=== PATIENT | female | born 1945 | race Caucasian/White ===

== ENCOUNTER 2019-11-10 07:20 | Observation (INO) | payer OTHER ==
[2019-11-06 10:45] LABS: BASOPHILS # (AUTO) 0.1 (0.0-0.1); EOSINOPHILS # (AUTO) 0.2 (0.0-0.4); EOSINOPHILS % 1.9 % (0.0-6.0); HEMATOCRIT 38.4 % (34.2-44.1); HEMOGLOBIN 12.6 g/dL (12.0-16.0); LYMPHOCYTES # (AUTO) 2.2 (1.0-3.2); LYMPHOCYTES % 26.3 % (18.0-39.1); MEAN CORPUSCULAR HEMOGLOBIN 29.7 pg (28-32); MEAN CORPUSCULAR HGB CONC 32.8 g/dL (31-35); MEAN CORPUSCULAR VOLUME 90.6 fL (81-99); MONOCYTES # (AUTO) 0.6 (0.2-0.8); MONOCYTES % 6.9 % (4.4-11.3); NEUTROPHILS # (AUTO) 5.3 (2.1-6.9); NEUTROPHILS % 63.4 % (38.7-80.0); PLATELET COUNT 203 x10e3/uL (140-360); RED BLOOD COUNT 4.24 x10e6/uL (3.6-5.1); RED CELL DISTRIBUTION WIDTH 11.9 % (11.7-14.4)
--- NOTE | 2019-11-06 11:39 | Diagnostic Imaging Report ---
Exam: PA and lateral chest radiograph Clinical history: Preoperative clearance Findings: There is no evidence of pulmonary consolidation, pleural effusion, or pneumothorax. The cardiac size is within normal limits. The descending aorta is tortuous. Levoscoliosis of the lumbar spine is noted. Impression: 1. No radiographic evidence of acute cardiorespiratory disease. Signed by: Dr. Rosendo Flores MD on 11/06/2019 11:35 AM
[~2019-11-10] VITALS: Ht 160 cm; Wt 68.5 kg
[~2019-11-10 07:20] MED LIST: ADVAIR 100-501 EACH INH; AMLODIPINE BESY10 MG PO; BENEFIBER1 EAC1 PO; BENICAR20 MG PO; BIOTIN5 MG; BISOPROLOL-HCT1 EAC1 PO; FERROUS SULFAT325 MG; LEVOTHYROXINE50 MCG PO; MIRALAX17 GM PO; NITROFURANTOIN100 MG PO; PRAVACHOL20 MG PO; PRAVASTATIN SOD10 MG PO; PROPIONATE PO; VITAMIN B12-FO1 EACH; VITAMIN C500 M4; VITAMIN D400 UNI1
[2019-11-10] MEDS ORDERED: ROPIVACAINE 246.25 MG, EPINEPHRINE HCL 1:1000 1ML 0.5 MG, CLONIDINE HCL 0.08 MG, KETORO... INJ ONE ×5 (08:00)
[2019-11-10] MEDS ORDERED: DEXAMETHASONE SOD PHOS 10 MG/1 ML VIAL ONE (08:12)
[2019-11-10] MEDS ORDERED: CELECOXIB 200 MG CAP ONE (08:12)
[2019-11-10] MEDS ORDERED: GABAPENTIN 300 MG CAP ONE (08:12)
[2019-11-10] MEDS ORDERED: CEFAZOLIN SOD 1 GM/NS 50ML 100 ML IV ONE (08:34)
[2019-11-10] MEDS ORDERED: HYDROCODONE/APAP 5MG-325MG TAB PO PRN (13:15)
[2019-11-10] MEDS ORDERED: ACETAMINOPHEN 650 MG SUPP PR PRN (13:15)
[2019-11-10] MEDS ORDERED: KETOROLAC TROMETHAMINE 30 MG/ML VIAL IV PRN (13:15)
[2019-11-10] MEDS ORDERED: ZOLPIDEM TARTRATE 5 MG TAB PO PRN (13:15)
[2019-11-10] MEDS ORDERED: DIPHENHYDRAMINE HCL INJ 50 MG/ML VIAL IV PRN (13:15)
[2019-11-10] MEDS ORDERED: HYDROCODONE/APAP 7.5MG-325MG 1 EA TAB PO PRN (13:15)
[2019-11-10] MEDS ORDERED: DOCUSATE SODIUM 100 MG CAP PO PRN (13:15)
[2019-11-10] MEDS ORDERED: ONDANSETRON HCL INJ 2MG/ML 2ML 2 MG/ML VIAL IV PRN (13:15)
[2019-11-10] MEDS ORDERED: VANCOMYCIN HCL 1,000 MG ONE (13:21)
[2019-11-10] MEDS ORDERED: SODIUM CHLORIDE 0.9% 250ML 500 ML ONE (13:21)
[2019-11-10] MEDS ORDERED: TRANEXAMIC ACID 1,000 MG/10 ML ML ONE (13:22)
[2019-11-10] MEDS ORDERED: BACITRACIN 50,000 UNIT VIAL ONE (13:22)
[2019-11-10] MEDS ORDERED: HYDROMORPHONE 1MG/1ML INJ ONE (13:23)
[2019-11-10] MEDS ORDERED: ACETAMINOPHEN 1000 MG/100 ML 100 ML IV ONE (13:36)
[2019-11-10] MEDS ORDERED: FENTANYL CITRATE/PF 100MCG/2 ML INJ ONE (13:49)
--- OUTSIDE RECORDS SUMMARY | 2019-11-10 14:18 | XMS REPORT ---
Author Author [facility] Organization [facility] Address [address] [place] [address] Phone Unavailable Care Team Providers Care Digital Media Intern Name Role Phone PATRICIA SALGADO Unavailable Payers Payer Name Policy Type Policy Number Effective Date Expiration Date S ource Problems This patient has no known problems. Allergies, Adverse Reactions, Alerts Allergy Name Allergy Type Status Severity Reaction(s) Onset Date Inacti ve Date Treating Clinician Comments Source lisinopril DA Active [place] 2018-10-22 00:00:00 [facility] morphine DA Active [place] 2018-10-22 00:00:00 [facility] lisinopril DA Active [place] 2017-06-23 00:00:00 [facility] morphine DA Active [place] 2016-07-23 00:00:00 [facility] Medications This patient has no known medications. Procedures This patient has no known procedures. Results Test Description Test Time Test Comments Results Result Comments Source CHEST 2 VIEWS 2019-11-06 11:32:00 [facility] [address] [place], [place] [address] Patient Name: JOB LLANOS MR #: [id number] : 1945 Age/Sex: 73/F Req #: [id number] Adm Physician: Ordered by: PATRICIA SALGADO MD Report #: [id number] Location: OR Room/Bed: Procedure: [id number] DX/CHEST 2 VIEWS Exam Date: 11/06/19 Exam Time: 1115 REPORT STATUS: Signed Exam: PA and lateral chest radiograph Clinical history: Preoperative clearance Findings: There is no evidence of pulmonary consolidation, pleural effusion, or pneumothorax. The cardiac size is within normal limits. The descending aorta is tortuous. Levoscoliosis of the lumbar spine is noted. Impression: 1. No radiographic evidence of acute cardiorespiratory disease. Signed by: Dr. Rosendo Flores MD on 11/06/2019 11:35 AM Dictated By: LUCY FLORES MD [id number] Transcribed By: MACIEJ on 11/06/19 1135 COPY TO: PATRICIA SALGADO MD
[2019-11-10 14:49] VITALS: BP 171/93
[2019-11-10 14:59] VITALS: BP 171/93
--- NOTE | 2019-11-10 15:02 | NUR ---
patient received from pacu via stretcher. see admit assess. vitals stable with no distress. no c/o pain.
[2019-11-10] MEDS ORDERED: SODIUM CHLORIDE 0.9% 1000ML 1,000 ML IV SCH (15:15)
--- NOTE | 2019-11-10 15:23 | Diagnostic Imaging Report ---
X-ray right knee portable AP and crosstable lateral History: Postoperative Findings: See impression Impression: Status post right total knee arthroplasty with orthopedic hardware in position and alignment with postoperative changes of soft tissue swelling, soft tissue air and surgical akbar. Signed by: Tye De Leon MD on 11/10/2019 3:20 PM
--- NOTE | 2019-11-10 15:30 | Operative Report ---
DATE OF PROCEDURE: 11/10/2019 SURGEON: Leo Hernandez MD [employer] OPERATOR: Walt Mina, certified PA. PREOPERATIVE DIAGNOSIS: Osteoarthritis, right knee. POSTOPERATIVE DIAGNOSIS: Osteoarthritis, right knee. PROCEDURE: Right total knee arthroplasty. INDICATIONS: The patient is a 73-year-old lady with end-stage arthritis of her right knee. She has failed conservative management and would like to proceed with a right total knee replacement. The risks and benefits have been discussed. She is familiar with the procedure. She is status post a left total knee replacement. All of her questions have been answered. She states she understands and wishes to proceed. PROCEDURE IN DETAIL: The patient was brought to the operating room and placed under general anesthetic. She received prophylactic antibiotics, tranexamic acid, and a regional block in the holding area. Her right lower extremity was prepped and draped in a sterile manner. A preoperative time-out was performed. The extremity was exsanguinated, and a proximal tourniquet was inflated to 300 mmHg. An anterior incision with a medial parapatellar arthrotomy was performed. Clear synovial fluid was removed from the joint. Soft tissue releases were performed to bring the knee up into flexion with the patella everted. Marginal osteophytes and meniscal remnants were excised. A [employer] posterior stabilized knee system were used. Initial attention was directed towards the tibia. An extramedullary cutting guide was used to resect the tibia. The cut was referenced off the lateral compartment. The tibial base plate was a size 4. The central fin punch was impacted and attention was directed towards the distal femur. An intramedullary cutting guide was used to resect the distal femur in 5 degrees of valgus and rotation referencing off a combination of landmarks including Whitesides line, the epicondylar axis, and the posterior condyles. The femoral component was a size 5. The anterior and posterior cuts were made. Trial reductions were performed. A 9 mm ultracongruent tibial insert provided appropriate soft tissue balancing in full extension and 90 degrees of flexion. The patella was resurfaced with a 32 mm x 7.5 mm patellar button. The thickness was checked before and after, and was right around 22 mm. Patellar tracking was concentric. The trial implants were removed. A 100 mL premixed pericapsular SHAUN injection was placed into the surrounding soft tissue. The knee was thoroughly irrigated with a shower tip pulsatile lavage. Irrigation had been further performed throughout the bone cuts using a spray mixture of diluted polymyxin and vancomycin spray. The components were cemented into place using a single mix of high viscosity Biomet cement preloaded with antibiotics. Care was taken to remove extravasated cement. The wound was further irrigated while the cement cured. The arthrotomy was then closed with interrupted #1 Ethibond. The skin was closed with subcuticular Vicryl and akbar. A sterile bandage was applied. The patient was extubated and transported to the recovery room in stable condition. Blood loss was minimal. All needle and sponge counts were correct. Leo Hernandez MD DR/JUAN FRANCISCO /[id number]
[2019-11-10] MEDS ORDERED: POLYETHYLENE GLYCOL 3350 17 GM PACK PO PRN (16:00)
[2019-11-10 16:22] VITALS: BP 138/70
--- NOTE | 2019-11-10 16:37 | NUR ---
DR WISEMAN OFFICE PREARRANGED FOLLOWING DISCHARGE PLAN OF: [facility] [address] [facility] [address] HOME HEALTH WITH SIGNATURE CONFIRMED WITH ANNIA [phone] DME CPM, 3 IN ONE COMMODE. AND ROLLING WALKER WITH WHEELS. PROVIDED BY [employer] [phone] JOE SIGNED AND ON CHART COPY LEFT WITH PATIENT GAVE CARD FOR QUESTIONS AND OR CONCERNS.
[2019-11-10] MEDS: ASPIRIN 325 MG TAB PO SCH (16:58)
[2019-11-10] MEDS: CELECOXIB 100 MG CAP PO SCH (16:58)
[2019-11-10] MEDS: OLMESARTAN 20 MG TAB PO SCH (16:58)
[2019-11-10] MEDS ORDERED: BISACODYL 10 MG SUPP PR PRN (17:15)
[2019-11-10] MEDS ORDERED: BISACODYL 10 MG SUPP PR NR (17:30)
[2019-11-10 19:37] VITALS: BP 142/80
[2019-11-10 19:38] VITALS: BP 142/80
[2019-11-10] MEDS ORDERED: SEVOFLURANE INHAL SOLN 250 ML PEN BTL ONE (19:39)
[2019-11-10] MEDS ORDERED: DEXAMETHASONE SOD PHOS INJ 4 MG/ML VIAL ONE (19:39)
[2019-11-10] MEDS ORDERED: ETOMIDATE 2 MG/ML 10 ML INJ IV ONE (19:39)
[2019-11-10] MEDS ORDERED: ONDANSETRON HCL INJ 2MG/ML 2ML 2 MG/ML VIAL ONE (19:39)
[2019-11-10] MEDS ORDERED: ROPIVACAINE 0.5% 5 MG/ML 30 ML SDV ONE (19:56)
[2019-11-10] MEDS: CEFAZOLIN SOD 1 GM/NS 50ML 50 ML IV SCH (20:15)
--- NOTE | 2019-11-10 20:47 | Consultation ---
DATE OF CONSULTATION: REASON FOR CONSULTATION: Medical management. HISTORY OF PRESENT ILLNESS: This is a 73-year-old white woman, who was admitted to [facility] with a diagnosis of severe right knee osteoarthritis. Today, the patient underwent successful right total knee arthroplasty, was performed by Dr. Leo Hernandez. The patient voiced no complaints at this time. The patient underwent a chest x-ray on November 06, 2019, which was unremarkable except it did reveal levoscoliosis of the lumbar spine. Complete blood count performed on November 06, 2019, was also all within normal limits. REVIEW OF SYSTEMS: GENERAL: Weight is stable. No fever, chills. HEENT: No headaches. No visual changes. CARDIOVASCULAR/RESPIRATORY: No chest pain. No shortness of breath or cough. GI: No nausea, vomiting, diarrhea, or constipation. : No dysuria. No hematuria. No incontinence. NEUROMUSCULAR: Denies any limb weakness or numbness. ALLERGIES: MORPHINE. PAST SURGICAL HISTORY: 1. Right total knee replacement today. 2. Left total knee replacement in 2003. 3. Total abdominal hysterectomy with bilateral salpingo-oophorectomy. 4. Appendectomy. FAMILY HISTORY: Multiple family members with hypertension. SOCIAL HISTORY: This woman is single. She lives at home with 2 pet animals (dog and cat). Initially, she was [place] immigrant, but she is now a naturalized [place] citizen. No history of tobacco or alcohol use. She is retired. The patient states she has an adult daughter, who lives in [place], [place] and another adult daughter, who lives in the [place] [facility]. PAST MEDICAL HISTORY: 1. Hypertension. 2. Hyperlipidemia. 3. Hypothyroidism. 4. Chronic constipation. MEDICATIONS: 1. Levothyroxine 50 mcg daily. 2. Olmesartan 20 mg b.i.d. 3. MiraLax 17 g once daily as needed for constipation. 4. Pravastatin 10 mg every night at bedtime. 5. Benefiber one packet daily. PHYSICAL EXAMINATION: GENERAL: She is awake. She is alert. She is fully oriented. She is very pleasant and cooperative. Does not appear to be in obvious distress. The patient has an obvious [place] accent. VITAL SIGNS: Height 5 feet 3 inches, weight 150 pounds, BMI 26. Blood pressure 140/80, pulse 66, respiratory rate 18, temperature 97.6, oxygen saturation is 98% on 2 L oxygen. INTEGUMENT: Skin is warm and dry. No pallor, jaundice, diaphoresis. HEENT: Anicteric sclerae with moist mucous membranes. NECK: Supple. CARDIOVASCULAR: Regular rate and rhythm with an S4 gallop. LUNGS: No rales. No rhonchi. No wheezes. ABDOMEN: Benign. EXTREMITIES: The patient's right knee surgical wound is currently dressed and her right lower extremity is currently in a continuous passive motion machine. No edema in legs. NEUROLOGIC: Intact. DIAGNOSES: 1. Status post right total knee replacement. 2. Hypertensive heart disease. 3. Hyperlipidemia. PLAN: 1. Encourage incentive spirometer usage to prevent atelectasis. 2. Pain control. 3. Discontinue intravenous fluids because of the patient's elevated blood pressure. 4. Blood pressure monitor and control. 5. Continue home medications. 6. We will stop supplemental oxygen. 7. We will follow hemoglobin and hematocrit. 8. Mobilize therapy. I would like to thank Dr. Hernandez, for this generous consult. I spent 40 minutes in the care of this patient. MD TIA Redding/JUAN FRANCISCO /[id number] MTDD
[2019-11-10] MEDS ORDERED: PRAVASTATIN 20 MG TAB PO SCH (21:00)
[2019-11-10 23:19] VITALS: BP 127/61
[2019-11-11] MEDS ORDERED: ACETAMINOPHEN 1000 MG/100 ML IV PRN ×2 (00:45→13:15)
[2019-11-11] MEDS: CEFAZOLIN SOD 1 GM/NS 50ML 50 ML IV SCH ×2 (03:50→11:48)
[2019-11-11 05:44] LABS: BASOPHILS % 0.2 % (0.0-1.0); EOSINOPHILS % 0.1 % (0.0-6.0); HEMATOCRIT 34.4 % (34.2-44.1); HEMOGLOBIN 11.5 g/dL (12.0-16.0); LYMPHOCYTES # (AUTO) 1.9 (1.0-3.2); LYMPHOCYTES % 14.5 % (18.0-39.1); MEAN CORPUSCULAR HEMOGLOBIN 30.3 pg (28-32); MEAN CORPUSCULAR HGB CONC 33.4 g/dL (31-35); MEAN CORPUSCULAR VOLUME 90.5 fL (81-99); MONOCYTES % 7.6 % (4.4-11.3); NEUTROPHILS # (AUTO) 10.1 (2.1-6.9); NEUTROPHILS % 77.3 % (38.7-80.0); PLATELET COUNT 259 x10e3/uL (140-360); RED CELL DISTRIBUTION WIDTH 11.9 % (11.7-14.4)
[2019-11-11 06:00] LABS: ANION GAP 12.3 mmol/L (8-16); CALCIUM 8.9 mg/dL (8.4-10.2); CREATININE, SERUM 0.94 mg/dL (0.57-1.11); POTASSIUM 4.3 mmol/L (3.5-5.1)
[2019-11-11] MEDS ORDERED: LEVOTHYROXINE SODIUM 50 MCG TAB PO SCH (06:00)
[2019-11-11 06:13] VITALS: BP 119/64
[2019-11-11 07:43] VITALS: BP 129/63
[2019-11-11] MEDS: OLMESARTAN 20 MG TAB PO SCH ×2 (09:00→11:47)
[2019-11-11] MEDS ORDERED: ONDANSETRON HCL 4 MG ORAL DISINTEGRATING TAB PO PRN (09:00)
--- NOTE | 2019-11-11 09:14 | Progress Note ---
DATE: 11/11/2019 CHIEF COMPLAINT/HISTORY OF PRESENT ILLNESS: This is a 73-year-old white woman, whose primary treating diagnosis is advanced right knee degenerative joint disease requiring right total knee arthroplasty. The patient underwent this surgery yesterday on November 10, 2019, which she tolerated quite well. The patient used the continuous passive motion machine yesterday evening and today, she ambulated with physical therapy. The patient voiced no complaints. Her only concern is her elevated cholesterol levels. REVIEW OF SYSTEMS: As per HPI. PHYSICAL EXAMINATION: GENERAL: She is awake, alert and fully oriented. She is very pleasant, cooperative. VITAL SIGNS: Height 5 feet 3 inches, weight 150 pounds, BMI 26. Blood pressure is 128/62, pulse 56, respiratory rate 18, temperature 98.0, oxygen saturation 94% on room air. INTEGUMENT: Skin is warm and dry. No pallor, jaundice or diaphoresis. HEENT: Anicteric sclerae. Moist mucous membranes. NECK: Supple. CARDIOVASCULAR: Additional heart sounds. Regular rate and rhythm with an S4 gallop. LUNGS: No rales, no rhonchi, no wheezes. ABDOMEN: Benign. EXTREMITIES: No edema. Deformity of left knee surgical incision is currently dressed. NEUROLOGIC: Intact. As stated previously, patient ambulated with physical therapy this morning. DIAGNOSES: 1. Status post right total knee replacement. 2. Hypertensive heart disease. 3. Hyperlipidemia. 4. Hypothyroidism. PLAN: 1. Tentative discharge today. Resume all home medications. 2. We will check lipid profile. 3. The patient will follow up with Dr. Hernandez in one week. 4. Patient will follow up with her primary care physician, namely Dr. Dede Morrow within 2 weeks. I spent 30 minutes in the care of this intensive care unit patient. MD TIA Redding/JUAN FRANCISCO /[id number] MTDD
[2019-11-11] MEDS: ASPIRIN 325 MG TAB PO SCH (09:35)
[2019-11-11] MEDS: CELECOXIB 100 MG CAP PO SCH (09:35)
[2019-11-11 09:39] VITALS: BP 129/63
[2019-11-11 10:39] LABS: CHOL/HDL RATIO 3.5 (3.0-3.6)
[2019-11-11 11:58] VITALS: BP 141/92
--- NOTE | 2019-11-11 14:08 | NUR ---
DISCHARGE INSTRUCTIONS REVIEWED WITH PT, VERBALIZED UNDERSTANDING, WHEELED OFF UNIT FOR DISCHARGE, NO CHANGE IN CONDITION
[2019-11-11] MEDS ORDERED: CELECOXIB 200 MG CAP PO SCH (17:00)
== END 2019-11-11 14:00 | disposition home health service (06) ==
LOC: OR 07:20 → PACU V 13:03 → MED/SURG 14:25
PROVIDERS: ADMIT Specialist; ATTEND Specialist
DX: M17.11 Unilateral primary osteoarthritis, right knee (principal); E78.00 Pure hypercholesterolemia, unspecified; E03.9 Hypothyroidism, unspecified; E78.5 Hyperlipidemia, unspecified; I11.9 Hypertensive heart disease without heart failure; K59.09 Other constipation; Z96.652 Presence of left artificial knee joint; Z88.5 Allergy status to narcotic agent; Z11.59 Encounter for screening for other viral diseases; Z01.810 Encounter for preprocedural cardiovascular examination; Z01.812 Encounter for preprocedural laboratory examination
CPT/HCPCS: 36415; 71046; 80048; 80061; 85025; 86850; 86870; 86880; 86900; 86905; 86920; 86922; 87635; 93005; 99001; C1713; G0378; J0171; J0690; J1100; J1170; J1885; J2405; J2795; J3010; J3370; J7030; J7050

== ENCOUNTER 2020-06-20 14:53 | Emergency (ER) | payer OTHER ==
[~2020-06-20] VITALS: Ht 160 cm; Wt 68.5 kg
== END 2020-06-20 16:03 | disposition home or self-care (01) ==
LOC: ER 15:35
DX: I10 Essential (primary) hypertension (principal); E78.5 Hyperlipidemia, unspecified; E03.9 Hypothyroidism, unspecified
CPT/HCPCS: 99282

== ENCOUNTER → 2021-09-18 | Day surgery (SDC) | payer OTHER ==
[2021-09-14 10:55] LABS: BASOPHILS # (AUTO) 0.1 (0.0-0.1); EOSINOPHILS # (AUTO) 0.1 (0.0-0.4); EOSINOPHILS % 2.8 % (0.0-6.0); HEMOGLOBIN 13.1 g/dL (12.0-16.0); LYMPHOCYTES # (AUTO) 1.8 (1.0-3.2); LYMPHOCYTES % 34.8 % (18.0-39.1); MEAN CORPUSCULAR HEMOGLOBIN 30.5 pg (28-32); MEAN CORPUSCULAR VOLUME 95.6 fL (81-99); MONOCYTES # (AUTO) 0.5 (0.2-0.8); NEUTROPHILS # (AUTO) 2.6 (2.1-6.9); PLATELET COUNT 215 x10e3/uL (140-360); RED BLOOD COUNT 4.29 x10e6/uL (3.6-5.1); RED CELL DISTRIBUTION WIDTH 12.6 % (11.7-14.4)
[~2021-09-18] MED LIST changes: +BIOTIN PO; +ESTRACE42.5 GM VG; +FIBER PO; +FLONASE ALLERG9.9 ML INH; +MULTI-VITAMIN1 EACH PO; +PRAVASTATIN SOD20 MG PO; +PROBIOTIC & AC1 EACH PO; +SLOW-MAG64 MG PO; +VESICARE5 MG PO; +VITAMIN B122500 MCG PO; +VITAMIN C1000 MG PO; +VITAMIN D3 COM1 EACH PO
[2021-09-18 14:25] VITALS: BP 131/78
== END | disposition home or self-care (01) ==
LOC: OR 11:36
PROVIDERS: ATTEND Internal Medicine Gastroenterology
DX: K22.2 Esophageal obstruction (principal); K29.30 Chronic superficial gastritis without bleeding; K44.9 Diaphragmatic hernia without obstruction or gangrene; K21.9 Gastro-esophageal reflux disease without esophagitis; Z71.3 Dietary counseling and surveillance; G47.33 Obstructive sleep apnea (adult) (pediatric); E66.9 Obesity, unspecified; I10 Essential (primary) hypertension; E03.9 Hypothyroidism, unspecified; M19.90 Unspecified osteoarthritis, unspecified site; J34.89 Other specified disorders of nose and nasal sinuses; R05.9 Cough, unspecified; E78.5 Hyperlipidemia, unspecified; R00.1 Bradycardia, unspecified; Z88.6 Allergy status to analgesic agent; Z88.8 Allergy status to other drugs, medicaments and biological substances; Z01.810 Encounter for preprocedural cardiovascular examination; Z01.812 Encounter for preprocedural laboratory examination; Z20.822 Contact with and (suspected) exposure to COVID-19; Z79.899 Other long term (current) drug therapy; Z68.31 Body mass index [BMI] 31.0-31.9, adult; Z85.828 Personal history of other malignant neoplasm of skin; Z86.16 Personal history of COVID-19
CPT/HCPCS: 36415; 43239; 85025; 93005; U0002